=== PATIENT | male | born 1985 | race Hispanic/Latino ===

== ENCOUNTER 2018-10-19 19:18 | Emergency (ER) | payer SELFPAY ==
[~2018-10-19] VITALS: Ht 167.6 cm; Wt 78.0 kg
[~2018-10-19 19:18] MED LIST: AUGMENTIN875TAB PO; LORTAB5 PO; NORCO1 TA1 PO
[2018-10-19 20:34] LABS: HEMATOCRIT 44.8 % (39.0-50.0); HEMOGLOBIN 15.5 g/dl (14.0-18.0); IMMATURE GRANULOCYTES 0.4 % (0.0-5.0); MEAN CELL VOLUME 84.5 fL CALC (80.0-100.0); MEAN CORPUSCULAR HGB 29.2 pG CALC (26.0-32.0); MEAN CORPUSCULAR HGB CONC 34.6 g/L CALC (32.0-36.0); NEUT# 6.43 thou/uL (1.82-7.42); RED BLOOD COUNT 5.3 mill/uL (4.70-6.10); RED CELL DISTRI WIDTH 11.9 % (11.5-15.5)
[2018-10-19 20:47] LABS: ALBUMIN 4.7 g/dL (3.2-5.0); ALKALINE PHOSPHATASE 104 u/l (38-126); ANION GAP 17 (6-22 (CALC)); BILIRUBIN, TOTAL 0.7 mg/dL (0.0-1.4); BUN 14 mg/dL (9-20); BUN/CREATININE RATIO 18 (12-20 (CALC)); CARBON DIOXIDE 25 mmol/l (22-30); CHLORIDE 101 mmol/l (95-108); CREATININE 0.8 mg/dL (0.7-1.3); GFR > 60 ML/MIN (>=60 (CALC)); GFR FOR AFR.AMER. > 60 ML/MIN (>=60 (CALC)); POTASSIUM 3.2 mmol/l (3.5-5.1); SGOT/AST 48 u/l (17-59); SODIUM 140 mmol/l (137-146)
[2018-10-19 22:30] VITALS: BP 137/90
== END 2018-10-19 22:30 | disposition home or self-care (01) | DRG 204 ==
LOC: ED 19:18
PROVIDERS: Emergency Medicine
DX: R06.4 Hyperventilation (principal); R03.0 Elevated blood-pressure reading, without diagnosis of hypertension
CPT/HCPCS: J2060

== ENCOUNTER 2022-06-03 09:07 | Emergency (ER) | payer SELFPAY ==
[~2022-06-03] VITALS: Ht 167.6 cm; Wt 91.0 kg
[2022-06-03 09:16] VITALS: BP 137/91
[2022-06-03 09:30] VITALS: BP 140/91
[2022-06-03] MEDS ORDERED: NAPROXEN500 MG PO (09:51)
[2022-06-03 10:00] VITALS: BP 112/79
[2022-06-03 10:30] VITALS: BP 125/92
[2022-06-03 10:41] VITALS: BP 125/92
== END 2022-06-03 10:45 | disposition home or self-care (01) | DRG 554 ==
LOC: ED 09:07
DX: M19.011 Primary osteoarthritis, right shoulder (principal)